=== PATIENT | female | born 1965 | race Caucasian/White ===

== ENCOUNTER 2022-12-24 09:23 | Emergency (ER) | payer OTHER ==
[~2022-12-24] VITALS: Ht 165.1 cm; Wt 80.7 kg
[2022-12-24] MEDS ORDERED: XANAX0.25 MG (10:01)
[2022-12-24] MEDS ORDERED: COZAAR100 MG (10:01)
== END 2022-12-24 12:01 | disposition home or self-care (01) ==
LOC: ER 09:23
DX: T78.40XA Allergy, unspecified, initial encounter (principal)